=== PATIENT | male | born 1960 | race Caucasian/White ===

== ENCOUNTER 2020-05-17 08:41 | Observation (INO) ==
--- NOTE | 2020-05-02 10:55 | History & Physical Report ---
Date of Service May 02, 2020 date of surgery: 05-17-20 Assessment & Plan (1) Arthritis of right knee: Further care discussed with patient and at this point in time has failed conservative measures and would like to proceed with a Right total knee replacement. Plan on discharge will be home with home health physical therapy. DVT prophalaxis with TEDs, SCDs and will also place on aspirin 81 mg p.o. b.i.d. for a month postop. Patient will have follow up appointment in our office two weeks post op for staple/suture removal and re-evaluation. Patient otherwise has no other questions or concerns. we discussed smoking cessation as well to promote healing during his post operative course. History of Present Illness Chief Complaint: Right knee pain Primary Care Provider: NO PCP Mr Gustafson is a 59 year old male who presents for pre op eval prior to a right total knee replacement at [facility]. By history, we originally saw Mr Gustafson in October 2015, he presented for eval of right knee pain and was referred by Dr. Martinez. He had cortisone injection in knee with little to no relief at that time. He underwent right knee scope at that time in October 2015. He was then seen again in December of 2018 for a work related right knee injury where he twisted his knee while "removing slush". he underwent PT and cortisone injection, and then again in February of 2019 he twisted while at work and reinjured his right knee. he underwent scope with partial medial meniscectomy, Partial lateral meniscectomy and Chondroplasty medial femoral condyle on 04/21/19. he complains of constant pain, instability despite wearing his brace and using NSAIDs. Allergies Allergy/AdvReac Type Severity Reaction Status Date / Time No Known Allergies Allergy Verified 04/11/20 12:18 Home Medications Home Medications Medication Instructions Recorded Confirmed Type atorvastatin 10 mg PO QAM 04/11/20 04/11/20 History ibuprofen 200 mg PO Q6H PRN 04/11/20 04/11/20 History ixekizumab [Taltz Autoinjector (3 80 mg SUBCUT MONTHLY 04/11/20 04/11/20 History Pack)] losartan 100 mg PO QAM 04/11/20 04/11/20 History tramadol 50 mg PO BID PRN 04/11/20 04/11/20 History Past Med/Surg History Medical History Chronic obstructive pulmonary disease no inh use> well controlled per patient Degenerative disc disease Depression Hearing deficit Hyperlipidemia Hypertension Hypoglycemia HAPPENS AT RANDOM Osteoarthritis Psoriasis Surgical History History of arthroscopy right KNEE History of arthroscopy BILAT SHOULDERS History of colonoscopy History of laminectomy L4 L5 History of tooth extraction Hx of removal of cyst face x2 > benign Family History Mother Diabetes Social History Smoking Status: Current every day smoker Cigarettes Per Day: 1 PPD; Second Hand Exposure: Yes; Do You Dip or Chew Tobacco: No; Tobacco Cessation Education Requested by Patient: No Hx Alcohol Use: Yes Alcohol type: beer Hx Substance Use: No Preferred Language: Syriac Communication Ability: Effective Department Director Required: No Beliefs That Will Affect Care: None Current Living Situation: Spouse Other Information That Helps Us Care for You: No Feels Safe at Home: Yes Safety Concerns: Feels Safe At This Time Review of Systems Review of Systems: All systems reviewed & are unremarkable except as noted in HPI & below Constitutional: no fever, no chills and no sweats Respiratory: no cough and no dyspnea Cardiovascular: no chest pain, no dyspnea and no orthopnea Gastrointestinal: no abdominal pain, no nausea and no vomiting Musculoskeletal: as per Subjective / HPI Physical Exam Physical Exam: Ht: 5ft 8in Wt: 69.4kg Constitutional: WD/WN, vitals as above no acute distress Respiratory: normal respiratory effort, lungs clear to auscultation no respiratory distress, no labored breathing and does not use accessory muscles Cardiovascular: RRR, no murmur, no edema Gastrointestinal (Abdomen): normal bowel sounds, soft, nontender, no hepatosplenomegaly Musculoskeletal: Knee: + knee abnormal to inspection (Right knee), + effusion (+1 effusion), + surgical incision (well healed portals), + limited ROM of knee (ROM 0/3/110), + knee ROM with crepitation, + joint line tenderness (medial joint line) and + Mendoza's sign positive; no deformity, no skin erythema, no ecchymosis, no valgus laxity, no varus laxity, anterior drawer test negative, Radha's sign negative and pivot shift test negative Results & Data Results & Data ([facility]) Diagnostic Findings Right knee x-ray: showing narrowing of the medial compartment with osteophyte formation. no acute bony pathology RIght knee MRI showing moderate articular degeneration medial compartment, tear involving the medial meniscus.
--- NOTE | 2020-05-03 11:27 | PAT Medication Instructions ---
Medication Instructions Date of Service May 03, 2020 Home Medications atorvastatin 10 mg PO QAM ibuprofen 200 mg PO Q6H PRN ixekizumab [Taltz Autoinjector (3 Pack)] 80 mg SUBCUT MONTHLY losartan 100 mg PO QAM tramadol 50 mg PO BID PRN ASK your surgeon for instructions ibuprofen 200 mg PO Q6H PRN ASK your prescriber and surgeon ixekizumab [Taltz Autoinjector (3 Pack)] 80 mg SUBCUT MONTHLY DO NOT take the morning of surgery losartan 100 mg PO QAM Take morning of surgery With a small sip of water, OTHERWISE NOTHING TO EAT OR DRINK AFTER MIDNIGHT: atorvastatin 10 mg PO QAM tramadol 50 mg PO BID PRN (if needed, may be taken up to four hours before surgery) Other Notes If you have any questions please call us at [phone] or [phone] or [phone] or [phone]
--- NOTE | 2020-05-04 13:04 | Anesthesiology Consultation ---
Date of Service May 04, 2020 Assessment & Plan (1) Encounter for pre-operative examination: - Hyponatremia (130) on preop labs: Awaiting hyponatremia/optimization response from PCP (Dr. Saima Alexander). *Per PAT assessment on 05/04: Travel screen- Travel to [facility] for doctor appts. No known COVID-19 positive contacts. + chronic cough ("smoker's cough"), unchanged. Patient scheduled for preop protocol COVID-19 testing 05/12 ([facility]). Awaiting results. - ETOH use: 6 beers/day, patient reports previous heavier ETOH use. He states that he typically drinks "throughout the day" but felt he would not have a problem with no ETOH use/NPO AM DOS - Hx hypoglycemia: remote hx 1+ years ago in setting of long periods of fasting. OR made aware to make earlier case if possible. Chart Review Chart Review: Patient seen in Pre Admission Testing Teaching & Discussion Pre-Anesthesia Teaching/Discussion Notes: Instructed NPO after midnight before surgery,except medications with 15 cc of water. Medication instructions provided according to the PAT guidelines. History Surgery Operation Date: 05/17/20 12:30 Proposed Procedures p Right Total Knee Arthroplasty - Umair Dennis DO Height/Weight Height: 5 ft 8 in Weight: 69.4 kg Allergies Allergy/AdvReac Type Severity Reaction Status Date / Time No Known Allergies Allergy Verified 04/11/20 12:18 Medications Home Medications Medication Instructions Recorded Confirmed Last Taken atorvastatin 10 mg PO QAM 04/11/20 04/11/20 Unknown ibuprofen 200 mg PO Q6H PRN 04/11/20 04/11/20 Unknown ixekizumab [Taltz Autoinjector (3 80 mg SUBCUT MONTHLY 04/11/20 04/11/20 Unknown Pack)] losartan 100 mg PO QAM 04/11/20 04/11/20 Unknown tramadol 50 mg PO BID PRN 04/11/20 04/11/20 Unknown Past Medical History Medical History Chronic obstructive pulmonary disease stable Degenerative disc disease Depression Hearing deficit Hyperlipidemia Hypertension Hypoglycemia hx of occasional "random" episodes after long periods of not eating, no issues x 1+ year Osteoarthritis Psoriasis Scoliosis Mild lumbar levoscoliosis per preop CXR Exercise / Class Metabolic Activity III < 4 Walking/Shop/Light housework (uses cane PRN) Past Family History Family History Mother Diabetes Past Surgical History Surgical History History of arthroscopy right KNEE History of arthroscopy BILAT SHOULDERS History of colonoscopy History of laminectomy L4 L5 History of tooth extraction Hx of removal of cyst face x2 > benign Past Anesthesia History No Hx of Anesthesia Complications and No Family Hx of Anesthesia Complications History of PONV No Hx of PONV and No Hx of Motion Sickness Social History Smoking Status: Current every day smoker tobacco type: cigarettes Smoking cigarettes per day: 1 PPD x 40 years Do You Dip or Chew Tobacco: No Hx Alcohol Use: Yes Alcohol type: beer alcohol intake frequency: 3 or more drinks per day (6 beers/day (previously heavier ETOH use), reports that ETOH use is throughout the day) Hx Substance Use: No substance use type: does not use Review of Systems Patient denies chest pain, shortness of breath, dyspnea on exertion, joint pain, reflux, cough, wheezing, palpitations. Physical Exam Vital Signs VITALS BP 100/58 P 87 TEMP 98.2 SP02 99%RA RESP 16 PHYSICAL Full neck and c-spine range of motion. Full TMJ range of motion. TMD 3 finger breaths Mallampati Score 3 Dentition: missing molars/sides Lungs: clear throughout to auscultation Cardiac: regular rate and rhythm, no murmurs noted Spine: normal Carotid arteries: negative bruit Extremities: no edema Testing Laboratory Results 05/04/20 14:05 05/04/20 14:05 PT 10.2 Seconds (9.0-12.0) 05/04/20 14:05 INR 1.0 (0.9-1.1) 05/04/20 14:05 APTT 27.3 Seconds (21.0-31.0) 05/04/20 14:05 Hemoglobin A1c 4.8 % (4.5-5.6) 05/04/20 14:05 Urine Color Yellow 05/04/20 14:05 Urine Appearance Clear (Clear) 05/04/20 14:05 Urine pH 6.0 (4.5-7.5) 05/04/20 14:05 Ur Specific [place] 1.021 (1.000-1.030) 05/04/20 14:05 Urine Protein Negative (Negative) 05/04/20 14:05 Urine Glucose (UA) Negative (Negative) 05/04/20 14:05 Urine Ketones Negative (Negative) 05/04/20 14:05 Urine Nitrite Negative (Negative) 05/04/20 14:05 Ur Leukocyte Esterase Negative (Negative) 05/04/20 14:05 Blood Type A Positive 05/04/20 14:05 Antibody Screen NEGATIVE 05/04/20 14:05 Preop labs faxed to PCP for them to review preoperatively* Electrocardiogram Date: 05/04/20 NSR at 85bpm. Chest X-Ray Date: 05/04/20 FINDINGS: Cardiomediastinal and hilar silhouettes are within normal limits. No pneumothorax, pleural effusion, airspace consolidation or overt pulmonary edema. Degenerative changes of the shoulders and spine. Mild lumbar levoscoliosis. Healed remote left-sided rib fractures. Bilateral AC joint widening with mild superior elevation of the left distal clavicle. IMPRESSION: No acute process.
--- NOTE | 2020-05-04 14:29 | XRay Report ---
XR chest Pre-admission PA/Lat HISTORY: 59 years-old Male pat preoperative exam. No acute chest complaints COMPARISON: None TECHNIQUE: PA and lateral views of the chest FINDINGS: Cardiomediastinal and hilar silhouettes are within normal limits. No pneumothorax, pleural effusion, airspace consolidation or overt pulmonary edema. Degenerative changes of the shoulders and spine. Mil d lumbar levoscoliosis. Healed remote left-sided rib fractures. Bilateral AC joint widening with mild superior elevation of the left distal clavicle. IMPRESSION: No acute process. ACT 112: Negative or not required by law. The above report was generated using voice recognition software. It may contain grammatical, syntax o r spelling errors. Electronically signed by: Norberto Armendariz M.D. 05/04/2020 2:28 PM
[2020-05-04 15:10] LABS: Basophils # (auto) 0.08 K/uL (0-0.2); Basophils % (auto) 1.7 %; Eosinophils # (auto) 0.28 K/uL (0-0.5); Hematocrit (blood only) 34.9 % (42-52); Hemoglobin 11.9 g/dL (14.0-18.0); Immature Granulocytes # (auto) 0.02 K/uL (0.00-0.02); Immature Granulocytes % (auto) 0.4 %; Lymphocytes # (auto) 1.31 K/uL (1.2-3.4); Lymphocytes % (auto) 27.9 %; Mean Corpuscular Hemoglobin 32.8 pg (25-34); Mean Corpuscular Hgb Conc 34.1 g/dL (32-36); Mean Corpuscular Volume 96.1 fL (80-100); Monocytes # (auto) 0.54 K/uL (0.11-0.59); Monocytes % (auto) 11.5 %; Neutrophils # (auto) 2.47 K/uL (1.4-6.5); Neutrophils % (auto) 52.5 %; Platelet Count 308 K/uL (130-400); RDW Coefficient of Variation 13.1 % (11.5-14.5); RDW Standard Deviation 46.3 fL (36.4-46.3); Red Blood Count 3.63 M/uL (4.7-6.1)
[2020-05-04 15:11] LABS: Appearance Urine Clear (Clear); Bilirubin Urine Negative (Negative); Blood Urine Negative (Negative); Color Urine Yellow; Glucose Urine UA Negative (Negative); Ketones Urine Negative (Negative); Leukocyte Esterase Urine Negative (Negative); Nitrite Urine Negative (Negative); Protein Urine Negative (Negative); Specific Gravity Urine 1.021 (1.000-1.030); Urobilinogen Urine Negative (Negative)
[2020-05-04 15:15] LABS: Albumin Level 3.4 gm/dl (3.4-5.0); Calcium 8.3 mg/dl (8.5-10.1); Creatinine Clr Calc Pharmacy 79.6 ml/min; Est GFR (African American) 97.6; Est GFR (Non-African American) 84.2; Potassium 4.2 mmol/L (3.5-5.1)
[2020-05-04 15:19] LABS: Partial Thromboplastin Time 27.3 Seconds (21.0-31.0); Prothrombin Time 10.2 Seconds (9.0-12.0)
--- NOTE | 2020-05-04 23:24 | Electrocardiogram Report ---
Test Reason : Blood Pressure : / mmHG Vent. Rate : 085 BPM Atrial Rate : 085 BPM P-R Int : 186 ms QRS Dur : 080 ms QT Int : 360 ms P-R-T Axes : 081 082 080 degrees QTc Int : 428 ms Normal sinus rhythm Normal ECG No previous ECGs available Confirmed by Uziel Jensen ([id number]) on 05/04/2020 11:24:13 PM Referred By: Umair Dennis Confirmed By:Uziel Jensen
[2020-05-05 08:14] LABS: Estimated Average Glucose 91 mg/dl; Hemoglobin A1C 4.8 % (4.5-5.6)
[~2020-05-17 08:41] MED LIST: ACETAMINOPHEN 500 MG TAB PO SCH; BUPIVACAINE 0.5 % 5 MG/1 ML PF 10ML VIAL ONE; CEFAZOLIN 1000MG 1,000 MG/7.5 ML SYR IV SCH; CeleBREX 200 MG CAP PO SCH; FAMOTIDINE 20 MG TAB PO SCH; GABAPENTIN 600 MG DOSE PO SCH; LR 500ML BOLUS, THEN 15ML/HR IV SCH; METOCLOPRAMIDE HCL 10 MG TABLET PO SCH; ROPIVACAINE 0.5% HCL/PF 150 MG, BUPIVACAINE 0.5% MPF 30 ML, EPINEPHrine 30MG/30ML (OR U... INSTIL SCH; TRANEXAMIC ACID 1,000 MG **IV Intra-op IV SCH; TRANEXAMIC ACID 1,000 MG **IV Pre-op IV SCH; dexAMETHasone 4 MG TAB PO SCH
[2020-05-17] MEDS ORDERED: MIDAZOLAM HCL 1 MG/ML 2ML VIAL ONE (08:49)
[2020-05-17] MEDS ORDERED: PROPOFOL IV EMULSION 10 MG/ML 20 ML VIAL IV ONE (08:54)
[2020-05-17] MEDS ORDERED: GLYCOPYRROLATE 0.2 MG/ML VIAL ONE (08:54)
[2020-05-17] MEDS ORDERED: ONDANSETRON INJ 2 MG/ML 2 ML VIAL ONE (08:54)
[2020-05-17] MEDS ORDERED: LIDOCAINE HCL 2% 2 ML VIAL/AMP(20MG/ML) INFIL ONE (08:54)
[2020-05-17] MEDS ORDERED: DEXAMETHASONE SOD INJ 4 MG/ML VIAL ONE (08:54)
--- NOTE | 2020-05-17 09:43 | History & Physical Bridge Note ---
Date of Service May 17, 2020 History & Physical Bridge Note I have examined the patient, reviewed the History & Physical and in the interval since the performance of the History & Physical I have noted the following changes of clinical significance: no changes noted
[2020-05-17] MEDS ORDERED: BACITRACIN INJ 50,000 UNIT VIAL ONE (10:23)
[2020-05-17] MEDS ORDERED: ORTHO JOINT ANESTHETIC ONE (10:23)
[2020-05-17] MEDS ORDERED: ATROPINE SULFATE 0.1 MG/ML 10ML SYR IV PRN (10:30)
[2020-05-17] MEDS ORDERED: ePHEDrine sulfate 50 MG/ML AMP IV PRN (10:30)
[2020-05-17] MEDS ORDERED: ONDANSETRON INJ 2 MG/ML 2 ML VIAL IV PRN ×2 (10:30→14:00)
[2020-05-17] MEDS ORDERED: fentaNYL citrate 100 MCG/2 ML VIAL IV PRN (10:30)
--- NOTE | 2020-05-17 12:07 | Operative Report ---
Post Operative Report Pre & Post Diagnosis Operation Date: 05/17/20 11:00 Pre-Op Diagnosis: Unilateral Primary Osteoarthritis Right Knee Post-Op Diagnosis: Unilateral Primary Osteoarthritis Right Knee I identified the patient and participated in the time-out.: Yes Procedure Operation Date: 05/17/20 11:00 Actual Procedures utilizing [employer] journey to non-block total knee arthroplasty size 6 femur 5 tibia 9 polyethylene 35 oval patella p Right Total Knee Arthroplasty(Right) - Umair Dennis DO Surgeon Umair Dennis DO Secondary Set Up Man [employer]ote[employer] SNOW Estimated Blood Loss 5 Findings Consistent with Post-Op Diagnosis Patient presents with severe end-stage tricompartmental degenerative joint disease of the right knee no response to conservative management patient did have evidence of marginal osteophyte subchondral cystic changes eburnated bone with a moderate to large effusion Specimens Bone and cartilage Drains Medium bore Hemovac Anesthesia Type MAC Spinal Regional Complications none Disposition Accompanied Patient To Recovery: No Disposition: Recovery Room Indications Patient presents with ongoing planes of pain after failed attempted conservative management clinic physical therapy anti-inflammatories relative rest activity modification corticosteroid injection injections as well as Visco supplementation the above intraoperative findings were noted. Description of Procedure After proper prepping and draping of the Right lower extremity anterior midline incision was made over the region of the extensor extensor mechanism after meticulous hemostasis was obtained and maintained in subcutaneous tissues a medial parapatellar incision was made The patella was subluxed lateralward the medial lateral gutter were cleaned from any hypertrophic synovitis and scar tissue of the distal femoral block was placed and the distal femoral osteotomy cut was made subsequently the chamfers anterior and posterior osteotomy cuts were made utilizing the 4-in-1 block the tibia was subsequently subluxed anteriorward medial and ateral meniscal remnants were excised in their entirety remnants of the anterior and posterior cruciate ligaments were excised in their entirety excellent exposure of the proximal tibia was obtained the tibial osteotomy guide was placed on the proximal tibial osteotomy cut was made once again the knee was irrigated with copious amounts of sterile saline solution the patella was subsequently everted lateralward thickened scar tissue around the patella was removed the patella was subsequently cut utilizing a freehand technique and was drilled prepared for final preparation and placement of patella socially flexion-extension gaps were checked and the equal and symmetric trials were placed to the appropriate femoral and tibial trials with poly-spacer being placed for equal flexion and extension gaps and full range of motion including extension to 0 and flexion to 140 the trial components after having been taken to recovery range of motion was subsequently removed meticulous hemostasis was obtained and maintained subsequently a knee block injection of joint cocktail including ropivacaine 0.5% 150 mg. Bupivacaine 0.5% epinephrine 1-200,030 mL's toradol 30 mg dexamethasone 4 mg ketamine 10 mg clonidine 100 micrograms normal saline solution 30 mg was infiltrated into the soft tissues of the posterior knee medial lateral gutters and periosteal synovium special attention was paid to protect neurovascular structures at all times subsequently trial components having been removed the knee was irrigated with sterile saline solution. debris was removed the proximal tibia was subsequently prepared and was made ready for the placement of the tibial component tibial component was also cemented and tamped into position the femoral component was subsequently placed and cemented in the position the patellar component was subsequently cemented in position because hemostasis once again obtained and maintained wound having been thoroughly irrigated with debridement and debridement lavage was performed as well as a medial parapatellar incision closed with #1 Vicryl in interrupted fashion subcutaneous was closed with #2 Vicryl skin was closed with skin clips. PA-C was necessary for prepping and drapping as well as wound cl osure of deep fascia Sub cutaneous tissue and skin and was necessary for the case. A sterile compressive dressing was placed patient was taken to recovery in stable condition of report dictated by Sonny I attest to the content of the Intraoperative Record and any orders documented therein. Any exceptions are noted below. I attest to the content of the Intraoperative Record and any orders documented therein. Any exceptions are noted below.
--- NOTE | 2020-05-17 13:35 | XRay Report ---
TWO VIEWS RIGHT KNEE CLINICAL HISTORY: Postoperative examination. FINDINGS: AP and crosstable lateral portable views of the right knee are obtained. A right knee arthr oplasty is in near anatomic alignment. There has been undersurface remodeling of the patella. No acut e fracture is seen. There are expected postoperative changes around the knee including a surgical aaron in, soft tissue edema, and subcutaneous gas. IMPRESSION: Expected postoperative changes status post right knee arthroplasty. No acute fracture is seen. ACT 112: Negative or not required by law. Electronically signed by: Aneesh Chowdary M.D. 05/17/2020 1:33 PM
--- NOTE | 2020-05-17 13:40 | Anesthesiology Progress Note ---
Date of Service May 17, 2020 Anesthesia Post Procedure Vital Signs Vital Signs: Temp Pulse Pulse Resp BP Pulse Ox 05/17/20 13:35 97.5 F L 69 18 109/79 99 05/17/20 13:25 76 18 119/77 99 05/17/20 13:15 72 20 125/72 99 05/17/20 13:05 72 18 111/72 100 05/17/20 12:56 98.6 F 76 18 114/71 100 05/17/20 10:38 97.7 F 76 18 121/66 100 Transfer of Care Handoff Completed per policy Notes Mental Status: alert / awake / arousable and participated in evaluation Patient Amnestic to Procedure: Yes Nausea / Vomiting: adequately controlled Pain: adequately controlled Airway Patency, RR, SpO2: stable & adequate BP & HR: stable & adequate Hydration State: stable & adequate Neuraxial Anesthesia: was administered and sensory block is resolving Anesthetic Complications: no major complications apparent and Pt Satisfied with anesthetic care
[2020-05-17] MEDS ORDERED: NALOXONE HCL 0.4 MG/1 ML VIAL/CARP IV PRN (14:00)
[2020-05-17] MEDS ORDERED: HYDROmorphone INJ 0.5 MG/0.5 ML SYR IV PRN (14:00)
[2020-05-17] MEDS ORDERED: bisacodyL 10 MG SUPP PR PRN (14:00)
[2020-05-17] MEDS ORDERED: MAGNESIUM HYDROXIDE SUSP 30 ML UDC PO PRN (14:00)
[2020-05-17] MEDS: SODIUM CHLORIDE 0.9% 1000ML 1,000 ML IV SCH (14:42)
[2020-05-17] MEDS ORDERED: LORazepam 0.5 MG/1 ML VIAL IV PRN (14:57)
[2020-05-17] MEDS: NICOTINE 21 MG/24 HR TDSY TD SCH (15:30)
[2020-05-17] MEDS: ACETAMINOPHEN 500 MG TAB PO SCH ×2 (15:30→23:33)
[2020-05-17] MEDS: FERROUS GLUCONATE 324 MG TAB PO SCH (17:57)
[2020-05-17] MEDS: CEFAZOLIN 1000MG 1,000 MG/7.5 ML SYR IV SCH (19:36)
[2020-05-17] MEDS: OXYCODONE HCL IR 5 MG TAB (IMMEDIATE RELEASE) PO PRN ×2 (19:40→23:41)
[2020-05-17] MEDS: ASPIRIN 81 MG ECTAB PO SCH (20:38)
[2020-05-17] MEDS: SENNA 8.6 MG TAB PO SCH (20:39)
[2020-05-17] MEDS: DOCUSATE SODIUM 100 MG CAP PO SCH (20:39)
[2020-05-18] MEDS: SODIUM CHLORIDE 0.9% 1000ML 1,000 ML IV SCH (00:38)
[2020-05-18] MEDS: CEFAZOLIN 1000MG 1,000 MG/7.5 ML SYR IV SCH (02:21)
[2020-05-18 06:17] LABS: Hematocrit (blood only) 28.7 % (42-52); Hemoglobin 10.1 g/dL (14.0-18.0); Mean Corpuscular Hemoglobin 32.8 pg (25-34); Mean Corpuscular Hgb Conc 35.2 g/dL (32-36); Mean Corpuscular Volume 93.2 fL (80-100); Mean Platelet Volume 7.8 fL (7.4-10.4); Platelet Count 214 K/uL (130-400); RDW Coefficient of Variation 12.6 % (11.5-14.5); RDW Standard Deviation 42.8 fL (36.4-46.3); Red Blood Count 3.08 M/uL (4.7-6.1); White Blood Count 12.93 K/uL (4.8-10.8)
[2020-05-18 06:49] LABS: BUN Creatinine Ratio 17.8 (10-20); Calcium 8.1 mg/dl (8.5-10.1); Creatinine Clr Calc Pharmacy 74.7 ml/min; Est GFR (Non-African American) 80.3; Potassium 4.1 mmol/L (3.5-5.1)
--- NOTE | 2020-05-18 07:43 | Orthopedic Progress Note ---
Date of Service May 18, 2020 Assessment & Plan (1) History of total right knee replacement: POD #1 s/p Right TKA pt/ot dvt proph with EMILE/SCD/ASA plan for d/c home with HHPT, will d/c after PT today. will have home nursing d/c hemovac tomorrow AM Admission and Anticipated Discharge Date Admission Date: May 17, 2020 Subjective POD #1 s/p Right TKA Review of Systems Constitutional: no fever, no chills and no sweats Respiratory: no cough and no dyspnea Cardiovascular: no chest pain and no dyspnea Gastrointestinal: no abdominal pain, no nausea and no vomiting Physical Exam Physical Exam: Vital Signs Temp 36.4 C L 05/18/20 07:03 Pulse 102 H 05/18/20 07:03 Resp 18 05/18/20 07:03 BP 139/77 05/18/20 07:03 Pulse Ox 99 05/18/20 07:03 Intake & Output 05/17/20 05/18/20 05/18/20 18:59 06:59 18:59 Intake Total 1400 / 5143.333 3743.333 / 5143.33 3 Output Total 5 1850 / 1875 355 / 355 Balance 1375 / 3268.333 1893.333 / 3268.33 3 -355 / -355 Weight 66.7 kg Intake: IV 500 / 1493.333 993.333 / 1493.333 Lr 1,000 ml @ 15 mls/hr IV . 300 / 300 Q24H [facility] Rx#:[id number] Nss 1000ML 1,0 00 ml @ 100 mls/ 993.333 / 993.333 hr IV .Q10H [facility] Rx#:[id number] TRANEXAMIC ACI D / 0.7% NACL 1, 200 / 200 000 mg In 100 ml @ 600 mls/hr IV TODAY@0600 [facility] Rx#:[id number] IV Perioperative 900 / 900 Oral 2750 / 2750 Output: Urine 600 / 600 355 / 355 Estimated Blood Loss 5 / 5 Urine Amount (Ca theter) 800 / 800 Straight 800 / 800 Drain Output 20 / 470 450 / 470 Right Knee 20 / 245 225 / 245 Right Knee Hem ovac 225 / 225 Other: # Unmeasured Voi ds 1 Constitutional: WD/WN, vitals as above no acute distress Musculoskeletal: Right Leg: NVDI, calf SNT, negative jarod sign. DP palpable, able to wiggle toes/ankle movement without difficulty. dressing clean dry and intact. Results & Data ([facility]) Vital Signs (Past 12 Hours) Vital Signs Temp Pulse Resp BP Pulse Ox 05/18/20 07:03 36.4 C L 102 H 18 139/77 99 05/18/20 03:44 36.5 C 91 H 16 136/83 97 05/17/20 23:00 36.4 C L 81 16 132/80 100 Laboratory Results Laboratory Results WBC 12.93 K/uL (4.8-10.8) H 05/18/20 05:32 RBC 3.08 M/uL (4.7-6.1) L 05/18/20 05:32 Hgb 10.1 g/dL (14.0-18.0) L 05/18/20 05:32 Hct 28.7 % (42-52) L 05/18/20 05:32 MCV 93.2 fL (80-100) 05/18/20 05:32 MCH 32.8 pg (25-34) 05/18/20 05:32 MCHC 35.2 g/dL (32-36) 05/18/20 05:32 RDW Std Deviation 42.8 fL (36.4-46.3) 05/18/20 05:32 RDW Coeff of Cosme 12.6 % (11.5-14.5) 05/18/20 05:32 Plt Count 214 K/uL (130-400) 05/18/20 05:32 MPV 7.8 fL (7.4-10.4) 05/18/20 05:32 Immature Gran % (Auto) 0.4 % 05/04/20 14:05 Neut % (Auto) 52.5 % 05/04/20 14:05 Lymph % (Auto) 27.9 % 05/04/20 14:05 Hill % (Auto) 11.5 % 05/04/20 14:05 Eos % (Auto) 6.0 % 05/04/20 14:05 Baso % (Auto) 1.7 % 05/04/20 14:05 Neut # (Auto) 2.47 K/uL (1.4-6.5) 05/04/20 14:05 Lymph # (Auto) 1.31 K/uL (1.2-3.4) 05/04/20 14:05 Hill # (Auto) 0.54 K/uL (0.11-0.59) 05/04/20 14:05 Eos # (Auto) 0.28 K/uL (0-0.5) 05/04/20 14:05 Baso # (Auto) 0.08 K/uL (0-0.2) 05/04/20 14:05 Immature Gran # (Auto) 0.02 K/uL (0.00-0.02) 05/04/20 14:05 PT 10.2 Seconds (9.0-12.0) 05/04/20 14:05 INR 1.0 (0.9-1.1) 05/04/20 14:05 APTT 27.3 Seconds (21.0-31.0) 05/04/20 14:05 PTT Ratio 1.0 05/04/20 14:05 Sodium 129 mmol/L (136-145) L 05/18/20 05:32 Potassium 4.1 mmol/L (3.5-5.1) 05/18/20 05:32 Chloride 101 mmol/L (98-107) 05/18/20 05:32 Carbon Dioxide 22 mmol/L (21-32) 05/18/20 05:32 Anion Gap 6.0 (3-11) 05/18/20 05:32 BUN 18 mg/dl (7-18) 05/18/20 05:32 Creatinine 1.03 mg/dl (0.6-1.4) 05/18/20 05:32 Est Cr Clr Drug Dosing 74.7 ml/min 05/18/20 05:32 Est GFR ( Amer) 93.0 05/18/20 05:32 Est GFR (Non-Af Amer) 80.3 05/18/20 05:32 BUN/Creatinine Ratio 17.8 (10-20) 05/18/20 05:32 Glucose 126 mg/dl (70-99) H 05/18/20 05:32 POC Glucose 84 mg/dl (70-99) 05/17/20 09:08 Estimat Average Glucose 91 mg/dl 05/04/20 14:05 Hemoglobin A1c 4.8 % (4.5-5.6) 05/04/20 14:05 Calcium 8.1 mg/dl (8.5-10.1) L 05/18/20 05:32 Albumin 3.4 gm/dl (3.4-5.0) 05/04/20 14:05 Urine Color Yellow 05/04/20 14:05 Urine Appearance Clear (Clear) 05/04/20 14:05 Urine pH 6.0 (4.5-7.5) 05/04/20 14:05 Ur Specific [place] 1.021 (1.000-1.030) 05/04/20 14:05 Urine Protein Negative (Negative) 05/04/20 14:05 Urine Glucose (UA) Negative (Negative) 05/04/20 14:05 Urine Ketones Negative (Negative) 05/04/20 14:05 Urine Blood Negative (Negative) 05/04/20 14:05 Urine Nitrite Negative (Negative) 05/04/20 14:05 Urine Bilirubin Negative (Negative) 05/04/20 14:05 Urine Urobilinogen Negative (Negative) 05/04/20 14:05 Ur Leukocyte Esterase Negative (Negative) 05/04/20 14:05 Hepatitis C Ab Screen Neg (Neg) 05/17/20 09:07 Blood Type A Positive 05/04/20 14:05 Antibody Screen NEGATIVE 05/04/20 14:05 Diagnostic Findings TWO VIEWS RIGHT KNEE CLINICAL HISTORY: Postoperative examination. FINDINGS: AP and crosstable lateral portable views of the right knee are obtained. A right knee arthroplasty is in near anatomic alignment. There has been undersurface remodeling of the patella. No acute fracture is seen. There are expected postoperative changes around the knee including a surgical drain, soft tissue edema, and subcutaneous gas. IMPRESSION: Expected postoperative changes status post right knee arthroplasty. No acute fracture is seen.
[2020-05-18] MEDS: DOCUSATE SODIUM 100 MG CAP PO SCH ×2 (08:33→21:45)
[2020-05-18] MEDS: LOSARTAN POTASSIUM 50 MG TAB PO SCH (08:34)
[2020-05-18] MEDS: MULTIVITAMIN TAB PO SCH (08:34)
[2020-05-18] MEDS: ATORVASTATIN 10 MG TAB PO SCH (08:34)
[2020-05-18] MEDS: ASPIRIN 81 MG ECTAB PO SCH ×2 (08:35→21:45)
[2020-05-18] MEDS: FERROUS GLUCONATE 324 MG TAB PO SCH ×2 (08:35→16:25)
[2020-05-18] MEDS: NICOTINE 21 MG/24 HR TDSY TD SCH (08:35)
[2020-05-18] MEDS: ACETAMINOPHEN 500 MG TAB PO SCH ×3 (08:36→23:48)
[2020-05-18] MEDS: OXYCODONE HCL IR 5 MG TAB (IMMEDIATE RELEASE) PO PRN ×3 (08:40→21:45)
[2020-05-18] MEDS: SENNA 8.6 MG TAB PO SCH (21:45)
[2020-05-19] MEDS: NICOTINE 21 MG/24 HR TDSY TD SCH (05:35)
[2020-05-19 06:52] VITALS: BP 116/70; PULSE 82; TEMP 98.2; O2SAT 99
--- NOTE | 2020-05-19 07:25 | Orthopedic Progress Note ---
Date of Service May 19, 2020 Assessment & Plan (1) History of total right knee replacement: POD #2 s/p Right TKA pt/ot dvt proph with EMILE/SCD/ASA plan for d/c home with OPPT later today Admission and Anticipated Discharge Date Admission Date: May 17, 2020 Subjective POD #2 s/p Right TKA Review of Systems Review of Systems: All systems reviewed & are unremarkable except as noted in HPI & below Constitutional: no fever and no chills Respiratory: no cough and no dyspnea Cardiovascular: no chest pain, no dyspnea and no orthopnea Gastrointestinal: no abdominal pain, no nausea and no vomiting Physical Exam Physical Exam: Vital Signs Temp 36.8 C 05/19/20 06:26 Pulse 82 05/19/20 06:26 Resp 16 05/19/20 06:26 BP 116/70 05/19/20 06:26 Pulse Ox 99 05/19/20 06:26 Intake & Output 05/18/20 05/19/20 05/19/20 18:59 06:59 18:59 Intake Total 1541.667 / 2141.66 7 600 / 2141.667 Output Total 1700 / 3575 1875 / 3575 Balance -158.333 / -1433.3 33 -1275 / -1433.333 Intake: IV 761.667 / 761.667 Nss 1000ML 1,0 00 ml @ 100 mls/ 761.667 / 761.667 hr IV .Q10H SC H Rx#:[id number] Oral 780 / 1380 600 / 1380 Output: Urine 1475 / 3350 1875 / 3350 Drain Output 225 / 225 Right Knee Hem ovac 225 / 225 Constitutional: WD/WN, vitals as above no acute distress Musculoskeletal: Right leg: NVDI, calf SNT, negative jarod sign. DP palpable, able to wiggle toes/ankle movement without difficulty. dressing clean dry and intact. expected post-operative bruising noted. Results & Data ([facility]) Vital Signs (Past 12 Hours) Vital Signs Temp Pulse Resp BP Pulse Ox 05/19/20 06:26 36.8 C 82 16 116/70 99 05/18/20 22:56 36.9 C 88 16 122/73 96 Laboratory Results Laboratory Results WBC 12.93 K/uL (4.8-10.8) H 05/18/20 05:32 RBC 3.08 M/uL (4.7-6.1) L 05/18/20 05:32 Hgb 10.1 g/dL (14.0-18.0) L 05/18/20 05:32 Hct 28.7 % (42-52) L 05/18/20 05:32 MCV 93.2 fL (80-100) 05/18/20 05:32 MCH 32.8 pg (25-34) 05/18/20 05:32 MCHC 35.2 g/dL (32-36) 05/18/20 05:32 RDW Std Deviation 42.8 fL (36.4-46.3) 05/18/20 05:32 RDW Coeff of Cosme 12.6 % (11.5-14.5) 05/18/20 05:32 Plt Count 214 K/uL (130-400) 05/18/20 05:32 MPV 7.8 fL (7.4-10.4) 05/18/20 05:32 Immature Gran % (Auto) 0.4 % 05/04/20 14:05 Neut % (Auto) 52.5 % 05/04/20 14:05 Lymph % (Auto) 27.9 % 05/04/20 14:05 [place] % (Auto) 11.5 % 05/04/20 14:05 Eos % (Auto) 6.0 % 05/04/20 14:05 Baso % (Auto) 1.7 % 05/04/20 14:05 Neut # (Auto) 2.47 K/uL (1.4-6.5) 05/04/20 14:05 Lymph # (Auto) 1.31 K/uL (1.2-3.4) 05/04/20 14:05 [place] # (Auto) 0.54 K/uL (0.11-0.59) 05/04/20 14:05 Eos # (Auto) 0.28 K/uL (0-0.5) 05/04/20 14:05 Baso # (Auto) 0.08 K/uL (0-0.2) 05/04/20 14:05 Immature Gran # (Auto) 0.02 K/uL (0.00-0.02) 05/04/20 14:05 PT 10.2 Seconds (9.0-12.0) 05/04/20 14:05 INR 1.0 (0.9-1.1) 05/04/20 14:05 APTT 27.3 Seconds (21.0-31.0) 05/04/20 14:05 PTT Ratio 1.0 05/04/20 14:05 Sodium 129 mmol/L (136-145) L 05/18/20 05:32 Potassium 4.1 mmol/L (3.5-5.1) 05/18/20 05:32 Chloride 101 mmol/L (98-107) 05/18/20 05:32 Carbon Dioxide 22 mmol/L (21-32) 05/18/20 05:32 Anion Gap 6.0 (3-11) 05/18/20 05:32 BUN 18 mg/dl (7-18) 05/18/20 05:32 Creatinine 1.03 mg/dl (0.6-1.4) 05/18/20 05:32 Est Cr Clr Drug Dosing 74.7 ml/min 05/18/20 05:32 Est GFR ( Amer) 93.0 05/18/20 05:32 Est GFR (Non-Af Amer) 80.3 05/18/20 05:32 BUN/Creatinine Ratio 17.8 (10-20) 05/18/20 05:32 Glucose 126 mg/dl (70-99) H 05/18/20 05:32 POC Glucose 84 mg/dl (70-99) 05/17/20 09:08 Estimat Average Glucose 91 mg/dl 05/04/20 14:05 Hemoglobin A1c 4.8 % (4.5-5.6) 05/04/20 14:05 Calcium 8.1 mg/dl (8.5-10.1) L 05/18/20 05:32 Albumin 3.4 gm/dl (3.4-5.0) 05/04/20 14:05 Urine Color Yellow 05/04/20 14:05 Urine Appearance Clear (Clear) 05/04/20 14:05 Urine pH 6.0 (4.5-7.5) 05/04/20 14:05 Ur Specific [place] 1.021 (1.000-1.030) 05/04/20 14:05 Urine Protein Negative (Negative) 05/04/20 14:05 Urine Glucose (UA) Negative (Negative) 05/04/20 14:05 Urine Ketones Negative (Negative) 05/04/20 14:05 Urine Blood Negative (Negative) 05/04/20 14:05 Urine Nitrite Negative (Negative) 05/04/20 14:05 Urine Bilirubin Negative (Negative) 05/04/20 14:05 Urine Urobilinogen Negative (Negative) 05/04/20 14:05 Ur Leukocyte Esterase Negative (Negative) 05/04/20 14:05 Hepatitis C Ab Screen Neg (Neg) 05/17/20 09:07 Blood Type A Positive 05/04/20 14:05 Antibody Screen NEGATIVE 05/04/20 14:05
[2020-05-19] MEDS: OXYCODONE HCL IR 5 MG TAB (IMMEDIATE RELEASE) PO PRN (08:58)
[2020-05-19] MEDS: DOCUSATE SODIUM 100 MG CAP PO SCH (08:59)
[2020-05-19] MEDS: LOSARTAN POTASSIUM 50 MG TAB PO SCH (08:59)
[2020-05-19] MEDS: FERROUS GLUCONATE 324 MG TAB PO SCH (09:00)
[2020-05-19] MEDS: ASPIRIN 81 MG ECTAB PO SCH (09:00)
[2020-05-19] MEDS: ATORVASTATIN 10 MG TAB PO SCH (09:00)
[2020-05-19] MEDS: MULTIVITAMIN TAB PO SCH (09:01)
[2020-05-19] MEDS: ACETAMINOPHEN 500 MG TAB PO SCH (09:01)
--- NOTE | 2020-05-23 10:19 | Discharge Summary ---
Date of Service May 23, 2020 Admission HPI Per Admitting Provider Mr Gustafson is a 59 year old male who presents for pre op eval prior to a right total knee replacement at [facility]. By history, we originally saw Mr Gustafson in October 2015, he presented for eval of right knee pain and was referred by Dr. Martinez. He had cortisone injection in knee with little to no relief at that time. He underwent right knee scope at that time in October 2015. He was then seen again in December of 2018 for a work related right knee injury where he twisted his knee while "removing slush". he underwent PT and cortisone injection, and then again in February of 2019 he twisted while at work and reinjured his right knee. he underwent scope with partial medial meniscectomy, Partial lateral meniscectomy and Chondroplasty medial femoral condyle on 04/21/19. he complains of constant pain, instability despite wearing his brace and using NSAIDs. Admission Exam Per Admitting Provider Physical Exam: Ht: 5ft 8in Wt: 69.4kg Constitutional: WD/WN, vitals as above no acute distress Respiratory: normal respiratory effort, lungs clear to auscultation no respiratory distress, no labored breathing and does not use accessory muscles Cardiovascular: RRR, no murmur, no edema Gastrointestinal (Abdomen): normal bowel sounds, soft, nontender, no hepatosplenomegaly Musculoskeletal: Knee: + knee abnormal to inspection (Right knee), + effusion (+1 effusion), + surgical incision (well healed portals), + limited ROM of knee (ROM 0/3/110), + knee ROM with crepitation, + joint line tenderness (medial joint line) and + Mendoza's sign positive; no deformity, no skin erythema, no ecchymosis, no valgus laxity, no varus laxity, anterior drawer test negative, Radha's sign negative and pivot shift test negative Principal Diagnosis Right Knee Djd Discharge Data Allergies Allergy/AdvReac Type Severity Reaction Status Date / Time pyrithione zinc AdvReac Intermediate ITCHINESS Verified 05/17/20 09:33 Consultations 05/17/20 14:00 Consult Case Management - Discharge Planning Routine 05/18/20 07:54 Consult Case Management - Discharge Planning Routine Procedures Performed Operation Date: 05/17/20 11:00 Actual Procedures p Right Total Knee Arthroplasty(Right) - Umair Dennis DO Ordered Studies 05/17/20 05:00 US - OR guided needle placemen Routine Hospital Course (1) Arthritis of right knee: Assessment & Plan (1) History of total right knee replacement: POD #2 s/p Right TKA pt/ot dvt proph with EMILE/SCD/ASA plan for d/c home with OPPT later today Admission and Anticipated Discharge Date Admission Date: May 17, 2020 Subjective POD #2 s/p Right TKA Review of Systems Review of Systems: All systems reviewed & are unremarkable except as noted in HPI & below Constitutional: no fever and no chills Respiratory: no cough and no dyspnea Cardiovascular: no chest pain, no dyspnea and no orthopnea Gastrointestinal: no abdominal pain, no nausea and no vomiting Physical Exam Physical Exam: Vital Signs Temp 36.8 C 05/19/20 06:26 Pulse 82 05/19/20 06:26 Resp 16 05/19/20 06:26 BP 116/70 05/19/20 06:26 Pulse Ox 99 05/19/20 06:26 Intake & Output 05/18/20 05/19/20 05/19/20 18:59 06:59 18:59 Intake Total 1541.667 / 2141.66 7 600 / 2141.667 Output Total 1700 / 3575 1875 / 3575 Balance -158.333 / -1433.3 33 -1275 / -1433.333 Intake: IV 761.667 / 761.667 Nss 1000ML 1,0 00 ml @ 100 mls/ 761.667 / 761.667 hr IV .Q10H SC H Rx#:[id number] Oral 780 / 1380 600 / 1380 Output: Urine 1475 / 3350 1875 / 3350 Drain Output 225 / 225 Right Knee Hem ovac 225 / 225 Constitutional: WD/WN, vitals as above no acute distress Musculoskeletal: Right leg: NVDI, calf SNT, negative jarod sign. DP palpable, able to wiggle toes/ankle movement without difficulty. dressing clean dry and intact. expected post-operative bruising noted. Results & Data ([facility]) Vital Signs (Past 12 Hours) Vital Signs Temp Pulse Resp BP Pulse Ox 05/19/20 06:26 36.8 C 82 16 116/70 99 05/18/20 22:56 36.9 C 88 16 122/73 96 Laboratory Results Laboratory Results WBC 12.93 K/uL (4.8-10.8) H 05/18/20 05:32 RBC 3.08 M/uL (4.7-6.1) L 05/18/20 05:32 Hgb 10.1 g/dL (14.0-18.0) L 05/18/20 05:32 Hct 28.7 Total Time Total Time Spent Total Time Spent (In Minutes): 5 Discharge Plan Discharge Items Patient Disposition: Home - Home Health Services Reason For Visit: Unilateral Primary Osteoarthritis Right Knee Discharge Diagnosis: Right total knee replacement Condition on Discharge: Good Activity: Per Instructions section Lifting: Wait until after follow-up appointment Weightbearing: Full weightbearing Non-emergency contact: Surgeon Call non-emergency contact if: you have any medication questions, your temperature is above 101, your wound has increased redness, your wound has increased drainage and your wound pain has increased Follow-up/Referrals: Saima Alexander DO [Primary Care Provider] - Diet: Regular Addtl Attending Provider Instructions: ACTIVITY RECOMMENDATIONS: SELF CARE INSTRUCTIONS AFTER TOTAL KNEE REPLACEMENT A. You may need to continue a physical therapy program after discharge from the hospital. There are several options available to you. Your doctor will assist you in selecting the best one for you. 1. An out-patient facility 2 to 3 times a week for therapy or home therapy. 2. Continue working on all exercises taught to you in the hospital. Your goals should be to increase bending of your knee to 90 degrees and beyond and to fully straighten your knee. B. You may progress at your own pace from walking with a walker or crutches to a cane; then to no assistive devices. C. Make walking a part of your daily routine. Be up as much as comfortable with rest periods throughout the day. Rest with leg elevation is very important. Use the ice wrap frequently for the first 3-4 weeks. D. There are no restrictions on activities. You may ride in a car, shop, participate in paint roller covermaker and all social activities. E. Wear the long elastic stockings (EMILE hose) 20 hours a day for 2 weeks after surgery. They can be removed several times a day for laundering and for a bath. F. You may shower, no tub baths until cleared by your doctor. SPECIAL CARE INSTRUCTIONS: VERY IMPORTANT TO READ AND REVIEW A. There are a few signs you need to watch for after you are home. Call [facility] if you notice any of the followin. Increased severe knee pain. Some pain is expected especially when you exercise. 2. Increased swelling in your leg or knee; pain or swelling of the calf muscle in either lower leg. 3. Any fluid drainage from the incision. 4. Shortness of breath or chest pain. B. Please call [facility] at if you have any concerns or questions about your operation or recovery. The doctor or his nurse will return your call promptly. C. You must take antibiotics before dental work, bladder, bowel or other surgery. Your doctor will provide you with a permanent care to carry describing this precaution. IMPORTANT: * REMEMBER TO TAKE ASPIRIN, 81 MG, TWICE DAILY FOR 4 WEEKS UNLESS OTHERWISE DIRECTED. THIS IS YOUR BLOOD THINNER. * HIGH RISK PATIENTS MAY BE PRESCRIBED A STRONGER BLOOD THINNER. THIS WILL BE PROVIDED AT DISCHARGE. * CALL IF INCREASED PAIN, REDNESS, DRAINAGE OR FEVER GREATER THAT 101. * WEAR EMILE HOSE 20 HOURS PER DAY FOR 2 WEEKS. * DERMABOND Prineo- This is a mesh tape dressing that is covered with glue. It should remain in place until the incision is properly healed, usually 10-14 days. This dressing is designed to naturally slough off. You may trim the excess mesh tape as it peels off. Incision may be briefly wet in a shower. Dry immediately by blotting with a clean, dry towel. Do not bath or swim until instructed by your doctor. Do not scratch, rub, or pick at the dressing. Do not apply any topical ointments or lotions until dressing is completely removed and/or instructed by your doctor. There may be a small piece of suture material at one end of your incision. Do not pull or trim this. If it is bothersome or catching on clothing, you may cover it with a band-aid. HOME NURSING TO D/C HEMOVAC ON 05/19/20 IF INCISION IS LEAKING THROUGH DRESSING, CALL THE OFFICE . FOLLOW UP VISIT: If appointment is not already scheduled: Please call [facility] to make a follow-up appointment for 2 weeks after your surgery at . Pending Studies at Discharge: No Stand-Alone Forms: My [facility] [employer], Opioid Pain Management, Work/School Release (Inpt), Smoking Cessation Medications and DC Order Prescriptions: New aspirin 81 mg Tablet,Delayed Release (Dr/Ec) 81 mg PO BID 30 Days Qty: 60 RF: 0 acetaminophen 500 mg Tablet 1,000 mg PO Q8H 21 Days Qty: 126 RF: 0 oxycodone 5 mg Tablet 5 - 10 mg PO Q6H PRN (Reason: pain) Qty: 30 RF: 0 docusate sodium 100 mg Capsule 100 mg PO BID 10 Days Qty: 20 RF: 0 cefadroxil 500 mg capsule 500 mg PO BID 10 Days Qty: 20 RF: 0 Continued losartan 25 mg Tablet 100 mg PO QAM RF: 0 Taltz Autoinjector (3 Pack) 80 mg/mL Auto-Injector 80 mg SUBCUT MONTHLY RF: 0 atorvastatin 10 mg Tablet 10 mg PO QAM RF: 0 Discontinued ibuprofen 200 mg Tablet 200 mg PO Q6H PRN (Reason: Pain) RF: 0 tramadol 50 mg Tablet 50 mg PO BID PRN (Reason: Pain) RF: 0 Discharge Orders: Discharge Order (Routine); Ordered 05/18/20 Ordered By: Param Chung/Other Patient Handouts: DVT Post Op Prevention, Knee Surg Exercise After, Post-Op Tips: Knee, Knee Replacement Recovery at Home Admission Data Admit Date/Time: 05/17/20 13:09 Attending Provider: Umair Dennis Admit Provider: Umair Dennis Primary Care Provider: Saima Alexander Other Interventions: Discharge Summary Assessment (RN) Last Done: 05/19/20 10:12 DC Date/Time DO NOT enter until pt leaves facility: 05/19/20 11:23
== END 2020-05-19 11:23 | disposition home or self-care (01) | DRG 470 ==
LOC: ASU 08:41 → INTOOBSV 13:09 → 3E 13:09